=== PATIENT | female | born 1955 | race Caucasian/White ===

== ENCOUNTER 2019-01-01 15:04 | Emergency (ER) | payer OTHER ==
[~2019-01-01] VITALS: Ht 165.1 cm; Wt 56.8 kg
[2019-01-01] MEDS ORDERED: LEVO88TA24 PO (15:41)
[2019-01-01] MEDS ORDERED: EPLERENONE (15:41)
[2019-01-01] MEDS ORDERED: CYAN1000VL IM (15:41)
[2019-01-01] MEDS ORDERED: [UNRECOGNIZED DRUG - OTHER] (15:42)
--- NOTE | 2019-01-01 15:57 | REP ---
Head CT without contrast: History: Right arm numbness. Comparison study: No comparison study. CT findings: Bone window settings demonstrate an intact bony calvarium. There is no evidence of skull fracture or incidental bony calvarial lesion. The visualized paranasal sinuses appear clear. No intraorbital abnormality is seen. On soft tissue window setting images; the lateral, third, and fourth ventricles are normal in size and position. Rosales-white differentiation pattern is normal above and below the tentorium. There are is no evidence of intracranial hemorrhage. No mass, edema, infarction, or midline shift is seen. No extra-axial fluid collection is appreciated. Impression: Negative noncontrast head CT. Electronically Signed by Trell Aguero MD 01/01/2019 03:55 P
[2019-01-01 16:41] LABS: BASO # 0.1 10^3/uL (0.0-0.2); BASO % 0.9 % (0.0-1.0); EOS # 0.1 10^3/uL (0.0-0.50); EOS % 1.5 % (0.0-3.0); HEMOGLOBIN 13.9 g/dl (12.0-15.5); LYMPH # 2.2 10^3/uL (1.5-4.5); MEAN CORPUSCULAR HEMOGLOBIN 31.6 pg (27.0-33.0); MEAN CORPUSCULAR HGB CONC 33.9 g/dl (32.0-36.5); MEAN CORPUSCULAR VOLUME 93.2 fl (80.0-96.0); MONO # 0.6 10^3/uL (0.0-0.8); MONO % 7.5 % (0.0-5.0); NEUTROPHILS # 4.4 10^3/uL (1.8-7.7); NEUTROPHILS % 59.8 % (36.0-66.0); PLATELET COUNT, AUTOMATED 167 10^3/uL (150-450); WHITE BLOOD COUNT 7.4 10^3/uL (4.0-10.0)
--- NOTE | 2019-01-01 16:50 | REP ---
Portable chest x-ray: Sitting AP view. History: CVA. Findings: EKG monitoring electrodes overlie the chest. Lungs are well inflated and clear. The pleural angles are sharp. Heart size is normal. Pulmonary vasculature is not increased. Impression: No active disease. Electronically Signed by Trell Aguero MD 01/01/2019 04:41 P
[2019-01-01 16:56] LABS: BLOOD UREA NITROGEN 31 MG/DL (7-18); CALCIUM LEVEL 7.6 MG/DL (8.8-10.2); CARBON DIOXIDE LEVEL 28 MEQ/L (21-32); CHLORIDE LEVEL 103 MEQ/L (98-107); CK-MB VALUE MASS < 1.0 NG/ML (<3.6); CPK CREATINE PHOSPHOKINASE 137 U/L (26-192); CREATININE FOR GFR 1.45 MG/DL (0.55-1.30); GLOMERULAR FILTRATION RATE 39.1 (>45); GLUCOSE, FASTING 104 MG/DL (70-100); MB/CK RELATIVE INDEX 0.73 (< OR =4); POTASSIUM SERUM 3.8 MEQ/L (3.5-5.1); SODIUM LEVEL 142 MEQ/L (136-145); TROPONIN I < 0.02 NG/ML (< 0.10)
[2019-01-01 17:02] LABS: INR 1.06; PARTIAL THROMBOPLASTIN TIME 26.7 SECONDS (25.0-38.4); PROTHROMBIN TIME 13.5 SECONDS (11.8-14.0)
[2019-01-01] MEDS ORDERED: ASPI81CH33 PO (18:57)
[2019-01-01] MEDS ORDERED: ASPIRIN 81 MG CHEW TABLET PO ONE (19:00)
[2019-01-01] MEDS ORDERED: CALCIUM GLUCONATE 1,000 MG in D5W MINI-BAG PLUS 100 ML IV ONE (19:00)
[2019-01-01 20:22] VITALS: BP 157/87
--- NOTE | 2019-01-02 20:32 | ECGEPIP ---
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
== END 2019-01-01 20:24 | disposition home or self-care (01) ==
LOC: M ED 15:04
DX: I10 Essential (primary) hypertension (principal); E83.51 Hypocalcemia; R00.1 Bradycardia, unspecified; Z87.442 Personal history of urinary calculi; E07.9 Disorder of thyroid, unspecified; Z88.6 Allergy status to analgesic agent; Z79.899 Other long term (current) drug therapy
CPT/HCPCS: 70450; 71045; 80048; 81001; 82330; 82550; 82553; 84443; 84484; 85025; 85610; 85730; 86850; 86900; 86901; 93005; 93041; 94760; 99284; J0610